=== PATIENT | female | born 1970 | race Caucasian/White ===

== ENCOUNTER 2017-12-30 00:58 | Emergency (ER) | payer MEDICAID ==
[~2017-12-30] VITALS: Ht 157.5 cm; Wt 54.4 kg
[2017-12-30 01:12] VITALS: Ht 157.5 cm; Wt 54.4 kg
[2017-12-30 01:56] LABS: BASOPHIL % 0.4 % (0-2); PLATELET COUNT 243 x10^3mcL (130-400); RED CELL DISTRIBUTION WIDTH 12.2 % (11.5-14.5)
[2017-12-30 02:04] LABS: CALCIUM 9.1 mg/dL (8.5-10.1); CARBON DIOXIDE 29.8 mmol/L (21-32); CHLORIDE SERUM 105 mmol/L (98-107); GFR1 > 60 mL/min; GLUCOSE SERUM 120 mg/dL (74-106); POTASSIUM SERUM 3.4 mmol/L (3.5-5.1); SODIUM SERUM 143 mmol/L (136-145)
[2017-12-30 02:09] LABS: ALBUMIN 3.7 g/dL (3.4-5.0); ALKALINE PHOSPHATASE 68 U/L (46-116); ALT/SGPT 22 U/L (14-59); AST/SGOT 16 U/L (15-37); BILIRUBIN TOTAL 0.37 mg/dL (0.20-1.00); CHOLESTEROL 151 mg/dL (<200); PHOSPHOROUS 3.7 mg/dL (2.5-4.9); URIC ACID 2.8 mg/dL (2.6-6.0)
[2017-12-30 02:11] LABS: HDL CHOLESTEROL 62 mg/dL (40-60)
[2017-12-30 02:53] VITALS: BP 143/75
== END 2017-12-30 02:53 | disposition home or self-care (01) ==
LOC: ED 00:58
PROVIDERS: Emergency Medicine
DX: R07.89 Other chest pain (principal); R06.02 Shortness of breath; H92.09 Otalgia, unspecified ear; K14.6 Glossodynia
CPT/HCPCS: 36415; 83880; J1885; Q0092